=== PATIENT | female | born 1985 | race Hispanic/Latino ===

== ENCOUNTER 2023-10-19 22:57 | Emergency (ER) | payer OTHER ==
[~2023-10-19] VITALS: Ht 139.7 cm; Wt 104.3 kg
[2023-10-19 23:18] VITALS: PULSE 86; RESP 17; TEMP 98; O2SAT 99
[2023-10-19 23:41] LABS: BILIRUBIN,URINE NEGATIVE (NEGATIVE); CLARITY,URINE CLEAR (CLEAR); COLOR,URINE YELLOW (YELLOW); GLUCOSE, URINE NEGATIVE (NEGATIVE); KETONES,URINE TRACE (NEGATIVE); LEUKOCYTE ESTERASE ,URINE TRACE (NEGATIVE); NITRITE,URINE NEGATIVE (NEGATIVE); PH,URINE 6 (5 - 7); PROTEIN,URINE DIPSTICK NEGATIVE (NEGATIVE); URINE UROBILINOGEN 0.2 mg/dL (0.2 - 1)
[2023-10-19 23:42] LABS: PREGNANCY TEST, URINE NEGATIVE (NEGATIVE)
[2023-10-19 23:58] LABS: BACTERIA,URINE MANY /HPF; EPITHELIAL CELLS,URINE MODERATE /LPF
[2023-10-20] MEDS: KETOROLAC TROMETHAMINE 60 MG/2 ML VIAL IM ONE
[2023-10-20] MEDS ORDERED: CEFDINIR300 MG PO (00:10)
[2023-10-20] MEDS ORDERED: ONDANSETRON ODT4 MG SL (00:10)
[2023-10-20] MEDS ORDERED: KETOROLAC TROME10 MG PEG (00:10)
== END 2023-10-20 00:28 | disposition home or self-care (01) ==
LOC: ER 23:04
DX: R10.2 Pelvic and perineal pain (principal); N39.0 Urinary tract infection, site not specified; E11.9 Type 2 diabetes mellitus without complications; G40.909 Epilepsy, unspecified, not intractable, without status epilepticus
CPT/HCPCS: 81001; 81025; 99282; J1885